=== PATIENT | male | born 1990 | race American Indian/Alaskan Native ===

== ENCOUNTER 2016-11-06 12:01 | Emergency (ER) | payer MEDICAID ==
[2016-11-06] MEDS ORDERED: GEODON IM ONE (12:22)
[2016-11-06] MEDS ORDERED: ATIVAN IM ONE (12:22)
[2016-11-06 13:03] LABS: Basophils % (Auto) 0.7 % (0.0-1.8); Hematocrit 44.8 % (35.5-45.6); Hemoglobin 14.6 gm/dl (11.8-15.2); Mean Corpuscular HGB Conc 33 % (32-34); Mean Corpuscular Hemoglobin 29 pg (28-32); Mean Corpuscular Volume 90 fl (84-94); Platelet Count 230 K/mm3 (140-440); Red Blood Count 4.97 M/mm3 (3.65-5.03); Red Cell Distribution Width 14.1 % (13.2-15.2); White Blood Count 13.3 K/mm3 (4.5-11.0)
[2016-11-06 13:20] LABS: Anion Gap 26 mmol/L; BUN/Creatinine Ratio 13.63; Blood Urea Nitrogen 15 mg/dL (9-20); Calcium 9.4 mg/dL (8.4-10.2); Carbon Dioxide 20 mmol/L (22-30); Chloride 95.6 mmol/L (98-107); Glucose 90 mg/dL (75-100); Potassium 3.7 mmol/L (3.6-5.0); Sodium 138 mmol/L (137-145)
--- NOTE | 2016-11-06 13:41 | Emergency Department Report ---
ED Psych HPI - General Chief Complaint: Psych Stated Complaint: MENTAL EVAL Source: patient, police Mode of arrival: Ambulatory - History of Present Illness Initial Comments: The patient has a history of schizophrenia. I am told that upon release from [facility] he went home to his mother's house but never took his antipsychotic medication. Apparently the patient has been floridly psychotic for some time. Police were summoned to his house and they executed a law enforcement initiated 1013. He was brought to the emergency department for medical clearance. Upon arrival the nurse told me that the patient was "ready to explode". I instructed her to give the patient 20 of Geodon and 1 of Ativan IM with the assistance of security. Apparently the police had to be summoned as well. The patient was tased and then given the medication. Patient tells me that he has been having hallucinations. He states he is listening to the "ambiance of the hospital". His agitation is now starting to subside. He has no other complaint. MD Complaint: other History of same: Yes Quality: constant Improves With: none Worsens With: none Context: not taking psychiatric Associated Symptoms: denies other symptoms Treatments Prior to Arrival: placed on mental he (police hold) - Related Data Home Medications Medication Instructions Recorded Confirmed Last Taken Ziprasidone HCl [Geodon] 80 mg PO DAILY 11/06/16 11/06/16 Unknown Allergies Allergy/AdvReac Type Severity Reaction Status Date / Time No Known Allergies Allergy Unverified 11/06/16 12:10 ED Review of Systems ROS: Stated complaint: MENTAL EVAL Other details as noted in HPI Comment: Unobtainable due to pts medical conditions (but briefly patient denies any other complaint) Psychiatric: auditory hallucinations ED Past Medical Hx - Past Medical History Previous Medical History?: Yes Hx Psychiatric Treatment: Yes (bipolar, schizophrenia) - Surgical History Past Surgical History?: No - Social History Smoking Status: Current Every Day Smoker Substance Use Type: Alcohol, Marijuana - Medications Home Medications: Home Medications Medication Instructions Recorded Confirmed Last Taken Type Ziprasidone HCl [Geodon] 80 mg PO DAILY 11/06/16 11/06/16 Unknown History ED Physical Exam - General Limitations: Other General appearance: alert, in no apparent distress - Head Head exam: Present: atraumatic, normocephalic - Eye Eye exam: Present: normal appearance. Absent: scleral icterus - ENT ENT exam: Present: mucous membranes moist - Neck Neck exam: Present: normal inspection. Absent: tenderness, meningismus - Respiratory Respiratory exam: Present: normal lung sounds bilaterally. Absent: respiratory distress - Cardiovascular Cardiovascular Exam: Present: regular rate, normal rhythm. Absent: systolic murmur, diastolic murmur, rubs, gallop - GI/Abdominal GI/Abdominal exam: Present: soft, normal bowel sounds. Absent: distended, tenderness, guarding, rebound - Rectal Rectal exam: Present: deferred - Extremities Exam Extremities exam: Present: normal inspection - Back Exam Back exam: Present: normal inspection - Neurological Exam Neurological exam: Present: alert, oriented X3, CN II-XII intact (as testable). Absent: motor sensory deficit - Psychiatric Psychiatric exam: Present: agitated, flat affect - Skin Skin exam: Present: warm, dry, intact, normal color. Absent: rash ED Course Vital Signs 11/06/16 12:10 Temperature 98.5 F Pulse Rate 91 H Respiratory 18 Rate Blood Pressure 153/91 O2 Sat by Pulse 98 Oximetry - Reevaluation(s) Reevaluation #1: The patient's behavior has been consistent with an agitated acute on chronic psychosis. 11/06/16 13:50 ED Medical Decision Making - Lab Data Result diagrams: 11/06/16 12:53 11/06/16 12:53 Laboratory Results - last 24 hr 11/06/16 11/06/16 12:53 12:53 WBC 13.3 H RBC 4.97 Hgb 14.6 Hct 44.8 MCV 90 MCH 29 MCHC 33 RDW 14.1 Plt Count 230 Lymph % (Auto) 15.7 [place] % (Auto) 9.6 H Eos % (Auto) 0.0 Baso % (Auto) 0.7 Lymph # 2.1 [place] # 1.3 H Eos # 0.0 Baso # 0.1 Seg Neutrophils % 74.0 H Seg Neutrophils # 9.8 H Sodium 138 Potassium 3.7 Chloride 95.6 L Carbon Dioxide 20 L Anion Gap 26 BUN 15 Creatinine 1.1 Estimated GFR > 60 BUN/Creatinine Ratio 13.63 Glucose 90 Calcium 9.4 Critical care attestation.: If time is entered above; I have spent that time in minutes in the direct care of this critically ill patient, excluding procedure time. ED Disposition Clinical Impression: Acute psychosis Disposition: DC/TX-65 PSY HOSP/PSY UNIT Is pt being admited?: No Does the pt Need Aspirin: No Condition: Stable Referrals: PRIMARY CARE, [Primary Care Provider] - 3-5 Days Time of Disposition: 13:52
[2016-11-06 18:11] LABS: Urine Drugs of Abuse Note Disclamer
[2016-11-06 18:22] LABS: Bilirubin,Urine NEG (Negative); Blood,Urine MOD (Negative); Ketones,Urine 80 mg/dL (Negative); Leukocyte Esterase,Urine NEG (Negative); Mucus,Urine 1+ /HPF; Nitrite,Urine NEG (Negative); WBC,Urine < 1.0 /HPF (0.0-6.0)
[2016-11-07] MEDS ORDERED: GEODON IM ONE (08:01)
[2016-11-07] MEDS ORDERED: WATER FOR INJ (PF) 10 ML ONE (08:05)
[2016-11-07] MEDS ORDERED: ATIVAN IM PRN (14:17)
[2016-11-07] MEDS ORDERED: GEODON IM PRN (14:17)
[2016-11-07] MEDS ORDERED: TYLENOL PO PRN (14:18)
[2016-11-07] MEDS ORDERED: ALUM-MAG HYDROX-SIMETH 200-200-20MG/5ML PO PRN (14:18)
[2016-11-07] MEDS ORDERED: MILK OF MAGNESIA PO PRN (14:18)
--- NOTE | 2016-11-07 15:29 | Consultation ---
History of Present Illness - Reason for Consult Reason for consult: psychosis Medications and Allergies Allergies Allergy/AdvReac Type Severity Reaction Status Date / Time No Known Allergies Allergy Verified 11/07/16 08:13 Home Medications Medication Instructions Recorded Confirmed Last Taken Type Ziprasidone HCl [Geodon] 80 mg PO DAILY 11/06/16 11/06/16 Unknown History Active Meds: Active Medications Acetaminophen (Tylenol) 650 mg PO Q4HR PRN PRN Reason: Pain MILD(1-3)/Fever >100.5/DAVIS Al Hydrox/Mg Hydrox/Simethicone (Alum-Mag Hydrox-Simeth [phone]/5ml) 30 ml PO Q4HR PRN PRN Reason: Indigestion Lorazepam (Ativan) 2 mg IM Q12H PRN PRN Reason: Agitation Magnesium Hydroxide (Milk Of Magnesia) 30 ml PO Q12HR PRN PRN Reason: Constipation Ziprasidone (Geodon) 20 mg IM Q12H PRN PRN Reason: Agitation Mental Status Exam - Vital signs Last Vital Signs Temp 98.1 F 11/07/16 01:21 Pulse 82 11/07/16 01:21 Resp 18 11/07/16 01:21 BP 148/86 11/07/16 01:21 Pulse Ox 96 11/07/16 01:21 Results Result Diagrams: 11/06/16 12:53 11/06/16 12:53 All other labs normal. 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 Patient was aggressive in the home and consequently brought to the ER per mother's request. While in the ER, patient required restraint and was tased by the staff. Patient appears to be fairly paranoid and responding to internal stimuli. PSYCHIATRIC REVIEW OF SYSTEMS: Substance: UDS positive for cannabis Depression: Withdrawn, low and irritable moods Teressa: Irritable moods, some delusions noted Psychosis: Positive AVH, notable for a thought disorder and associated paranoid delusions Anxiety/ OCD/ PTSD: For currently worried and possible anxiety noted Suicidality: denies SI Other Self-Injurious Behavior: none currently, no SIB noted recently Violent/ Aggressive Behavior: Recent aggression noted CURRENT MEDICATIONS: ( Psychiatric and Non-psychiatric ) Per medication reconciliation ALLERGIES: NKDA PAST PSYCHIATRIC HISTORY: ( Prior Treatment, Precipitating Factors, Diagnosis, and Course of Treatment ) Inpatient: [facility] Outpatient: Unable to obtain Prior Suicide Attempts: Unable to obtain Prior Self-Injurious Behaviors: Unable to obtain PAST PSYCHIATRIC MEDICATION TRIALS: Geodon 80 mg at bedtime MEDICAL HISTORY: (Chronic and Acute Illnesses, Current Medical Treatment, Recent Hospitalizations) Denies Detoxification / Withdrawal: none noted MENTAL STATUS EXAM: General Appearance: Dressed in hospital gown, no acute distress Sensorium/Consciousness: alert and responding to external stimuli Eye Contact: limited Attitude / Behavior: cooperative, but guarded Psychomotor & Musculoskeletal Activity: WNL Mood: fine Affect: Blunted Speech / Language: normal Thought Processes: Perseverative and disorganized Thought Content: no SI, no HI Perception: Likely responding to internal stimuli, paranoid Orientation: person, place, time, situation Judgment What would you do if you smelled smoke in a crowded movie theater?: poor/impulsive Insight: poor Intelligence Vocabulary, general fund of knowledge, educational level: Average Capacity of ADLs: Independent STRENGTHS: PSYCHOSOCIAL AND ENVIRONMENTAL STRESSORS: ADMITTING DIAGNOSES Psychiatric: Schizophrenia Cannabis abuse Evidence for the following: Medical: n/a INITIAL PLAN OF CARE AND TREATMENT GOALS: Refer to inpatient psychiatric care Start Zyprexa 10 mg at bedtime
--- NOTE | 2016-11-08 15:24 | Progress Note ---
Subjective - Reason for Consult Reason for consult: disorganized and aggressive Mental Status Exam - Vital signs Last Vital Signs Temp 98.8 F 11/08/16 10:45 Pulse 73 11/08/16 10:45 Resp 18 11/08/16 10:45 BP 156/82 11/08/16 10:45 Pulse Ox 100 11/08/16 10:45 Assessment and Plan Patient remains fairly irritable. Patient needed to be placed in seclusion today. Patient is adherent to his Zyprexa. On clinical examination today, patient noted that he wanted to, seclusion. I discussed this matter with the product safety manager who informed me that he will take patient out seclusion. MENTAL STATUS EXAM: General Appearance: Dressed in hospital gown, no acute distress Sensorium/Consciousness: alert and responding to external stimuli Eye Contact: limited Attitude / Behavior: cooperative, but guarded Psychomotor & Musculoskeletal Activity: WNL Mood: fine Affect: Blunted Speech / Language: normal Thought Processes: Perseverative and disorganized Thought Content: no SI, no HI Perception: Likely responding to internal stimuli, paranoid Orientation: person, place, time, situation Judgment What would you do if you smelled smoke in a crowded movie theater?: poor/impulsive Insight: poor Intelligence Vocabulary, general fund of knowledge, educational level: Average Capacity of ADLs: Independent PLAN OF CARE: Refer to inpatient psychiatric care Increase to Zyprexa 10 mg every 12 hours Haloperidol 5 mg every 8 hours can be used as needed for severe agitation along with Cogentin 1 mg as needed every 12 hours for preventing dystonic reactions
--- NOTE | 2016-11-09 10:11 | Progress Note ---
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 Today patient is calm, cooperative but delusional during assessment. He stated that he don't want to kill himself, because he have seen "hell" before. During our conversation patient would pause, look off, and continue our conversation. Patient possibly responding to some type of stimuli. He denies SI/HI's, VH's, but stated hearing "some type of voice." He could elaborate about what the voice is saying. Per the staff, no behavioral disturbances overnight. Mental Status Exam - Vital signs Last Vital Signs Temp 98.4 F 11/09/16 07:52 Pulse 79 11/09/16 07:52 Resp 16 11/09/16 07:52 BP 124/70 11/09/16 07:52 Pulse Ox 100 11/09/16 07:52 - Exam Narrative exam: MSE: Appearance: calm, cooperative Behavior: good eye contact Speech: regular rate and tone Mood: "okay" Affect: flat Thought Process: tangential Thought Content: denies HI's and AVH's, delusional Motor Activity: ambulatory Cognition: A/Ox 3 Insight: limited Judgment: limited Assessment and Plan Impression: Schizophrenia, Cannabis abuse, Delusional. Today patient is calm, cooperative but delusional during assessment. Positive for marijuana. Recommendation/Plan: Continue 1013 with placement to inpatient psy services. Continue Zyprexa 10 mg PO Q12 hrs for schizophrenia and Started Cogentin 0.5 mg PO Q12 for EPS prevention. Discussed possible metabolic side effects from Zyprexa with patient.
[2016-11-09] MEDS ORDERED: HALDOL IM PRN (10:15)
[2016-11-09] MEDS: COGENTIN PO SCH (20:06)
--- NOTE | 2016-11-10 11:35 | Progress Note ---
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 Today patient is calm and cooperative during assessment. Again, he stated that he know what it is like to go "hell." He made this statement yesterday referencing suicide. He stated that the voice he heard yesterday has ceased. He denies SI/HI's and AVH's. Per the staff, no behavioral disturbances overnight. Mental Status Exam - Vital signs Last Vital Signs Temp 97.7 F 11/10/16 03:47 Pulse 62 11/10/16 03:47 Resp 18 11/10/16 03:47 BP 129/92 11/10/16 03:47 Pulse Ox 99 11/10/16 03:47 - Exam Narrative exam: MSE: Appearance: calm, cooperative Behavior: good eye contact Speech: regular rate and tone Mood: "okay" Affect: labile Thought Process: circumstantial Thought Content: denies HI's and AVH's Motor Activity: ambulatory Cognition: A/Ox 3 Insight: limited Judgment: limited Assessment and Plan Impression: Schizophrenia, Cannabis abuse. Today patient is calm and cooperative during assessment. Positive for marijuana. Recommendation/Plan: Continue 1013 with placement to inpatient psy services. Continue Zyprexa 10 mg PO Q12 hrs for schizophrenia and Cogentin 0.5 mg PO Q12 for EPS prevention. Discussed possible metabolic side effects from Zyprexa with patient.
[2016-11-10] MEDS: COGENTIN PO SCH ×3 (13:27→22:00)
--- NOTE | 2016-11-11 16:41 | Progress Note ---
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 Today patient is calm and cooperative during assessment. He denies SI/HI's and AVH's. He admits to fears of a higher being but declined to elaborate. He was observed walking out of his room and squatting in a bizarre fashion and then returning to the room. Mental Status Exam - Vital signs Last Vital Signs Temp 98.4 F 11/11/16 08:05 Pulse 97 H 11/11/16 08:05 Resp 20 11/11/16 08:19 BP 180/95 11/11/16 08:05 Pulse Ox 100 11/11/16 08:19 Assessment and Plan MSE: Appearance: calm, cooperative Behavior: good eye contact Speech: regular rate and tone Mood: labile Affect: labile/expansive Thought Process: circumstantial Thought Content: denies HI's and AVH's anabaptist themed delusions Motor Activity: ambulatory Cognition: A/Ox 3 Insight: limited Judgment: limited Assessment and Plan Impression: Schizophrenia, Cannabis abuse. Today patient is calm and cooperative during assessment. Psychosis present. Positive for marijuana. Recommendation/Plan: Continue 1013 with placement to inpatient psy services. Continue Zyprexa 10 mg PO Q12 hrs for schizophrenia and Cogentin 0.5 mg PO Q12 for EPS prevention.
[2016-11-11] MEDS: COGENTIN PO SCH (21:40)
--- NOTE | 2016-11-12 09:42 | Progress Note ---
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 Today patient is calm, cooperative, but hyperverbal during assessment. He stated that he was anxious about his next endeavor in life. Upon my arrival to his room, patient was pacing. He stated, "I can stop walking around this room." After a couple minutes patient did sit on the gurney and speak with me. He was disorganized with his thoughts, but mentioned that he feel 165% better today. He denies SI/HI's, AVH's, sleep disturbance or a poor appetite. Mental Status Exam - Vital signs Last Vital Signs Temp 98.7 F 11/11/16 23:00 Pulse 65 11/11/16 23:00 Resp 17 11/11/16 23:00 BP 125/74 11/11/16 23:00 Pulse Ox 97 11/11/16 23:00 - Exam Narrative exam: MSE: Appearance: calm, cooperative, anxious Behavior: good eye contact, hyperverbal Speech: regular rate and tone Mood: "better" Affect: labile Thought Process: circumstantial Thought Content: denies SI/HI's and AVH's, disorganzed Motor Activity: ambulatory Cognition: A/Ox 3 Insight: limited Judgment: limited Assessment and Plan mpression: Schizophrenia, Cannabis abuse. Positive for marijuana. Recommendation/Plan: Continue 1013 with placement to inpatient psy services. Continue Zyprexa 10 mg PO Q12 hrs for schizophrenia and Cogentin 0.5 mg PO Q12 for EPS prevention. Start Vistaril 25mg PO BID for anxiety. Discussed possible metabolic side effects from Zyprexa with patient.
[2016-11-12] MEDS: COGENTIN PO SCH ×2 (10:22→22:43)
[2016-11-12] MEDS: VISTARIL PO SCH ×2 (10:22→22:43)
[2016-11-13] MEDS: VISTARIL PO SCH (10:09)
[2016-11-13] MEDS: COGENTIN PO SCH (10:09)
--- NOTE | 2016-11-13 13:22 | Progress Note ---
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 Today patient is calm, cooperative, but hyperverbal during assessment. Yesterday the patient stated that he was anxious about going back home and was pacing during our conversation. Today he denies anxiety, but stated he would like to live with his girlfriend. He denies SI's, AVH's and depression symptoms. He denies sleep disturbance and a poor appetite. He denies any side effects of his medications. Mental Status Exam - Vital signs Last Vital Signs Temp 98.3 F 11/13/16 10:59 Pulse 66 11/13/16 10:59 Resp 20 11/13/16 11:00 BP 134/76 11/13/16 10:59 Pulse Ox 100 11/13/16 10:59 - Exam Narrative exam: MSE: Appearance: calm, cooperative Behavior: good eye contact, hyperverbal Speech: regular rate and tone, disorganized Mood: "well" Affect: labile Thought Process: circumstantial Thought Content: denies SI/HI's and AVH's Motor Activity: ambulatory Cognition: A/Ox 3 Insight: limited Judgment: limited Assessment and Plan Impression: Schizophrenia, Cannabis abuse. Today patient is calm, cooperative, but hyperverbal during assessment. Patient is no threat to self or others. Recommendation/Plan: Rescind 1013. Continue Zyprexa 10 mg PO Q12 hrs for schizophrenia and Cogentin 0.5 mg PO Q12 for EPS prevention, and Vistaril 25mg PO BID for anxiety. Discussed possible metabolic side effects from Zyprexa with patient. Patient can follow-up with outpatient psy services at the [facility]. Alteration Tailor Apprentice involvement, patient will need placement.
--- NOTE | 2016-11-13 19:59 | Emergency Department Report ---
HPI - General Chief Complaint: Psych ED Past Medical Hx - Past Medical History Previous Medical History?: Yes Hx Psychiatric Treatment: Yes (bipolar, schizophrenia) - Surgical History Past Surgical History?: No - Social History Smoking Status: Current Every Day Smoker Substance Use Type: Alcohol, Marijuana - Medications Home Medications: Home Medications Medication Instructions Recorded Confirmed Last Taken Type Ziprasidone HCl [Geodon] 80 mg PO DAILY 11/06/16 11/06/16 Unknown History ED Review of Systems ROS: Stated complaint: MENTAL EVAL Other details as noted in HPI Psychiatric: auditory hallucinations Physical Exam - Physical Exam Vital Signs: Vital Signs 11/06/16 11/06/16 11/07/16 12:10 17:17 01:21 Temperature 98.5 F 98.1 F Pulse Rate 91 H 82 Respiratory 18 20 18 Rate Blood Pressure 153/91 Blood Pressure 148/86 [Left] O2 Sat by Pulse 98 96 Oximetry 11/08/16 11/08/16 11/08/16 06:56 10:45 22:00 Temperature 98.8 F 98.8 F 98.6 F Pulse Rate 78 73 83 Respiratory 16 18 16 Rate Blood Pressure Blood Pressure 130/82 156/82 122/70 [Left] O2 Sat by Pulse 98 100 97 Oximetry 11/09/16 11/09/16 11/10/16 07:52 22:26 03:47 Temperature 98.4 F 98.5 F 97.7 F Pulse Rate 79 77 62 Respiratory 16 16 18 Rate Blood Pressure Blood Pressure 124/70 125/73 129/92 [Left] O2 Sat by Pulse 100 99 99 Oximetry 11/10/16 11/11/16 11/11/16 15:58 02:40 08:05 Temperature 98 F 98.7 F 98.4 F Pulse Rate 93 H 96 H 97 H Respiratory 16 18 20 Rate Blood Pressure Blood Pressure 112/72 118/78 180/95 [Left] O2 Sat by Pulse 96 98 100 Oximetry 11/11/16 11/11/16 11/12/16 08:19 23:00 12:26 Temperature 98.7 F Pulse Rate 65 Respiratory 20 17 18 Rate Blood Pressure Blood Pressure 125/74 [Left] O2 Sat by Pulse 100 97 97 Oximetry 11/12/16 11/12/16 11/12/16 15:00 19:38 22:00 Temperature 97.6 F 98.2 F Pulse Rate 72 63 Respiratory 20 18 19 Rate Blood Pressure Blood Pressure 134/57 134/83 [Left] O2 Sat by Pulse 99 96 Oximetry 11/13/16 11/13/16 10:59 11:00 Temperature 98.3 F Pulse Rate 66 Respiratory 20 20 Rate Blood Pressure Blood Pressure 134/76 [Left] O2 Sat by Pulse 100 Oximetry ED Course Vital Signs 11/06/16 11/06/16 11/07/16 12:10 17:17 01:21 Temperature 98.5 F 98.1 F Pulse Rate 91 H 82 Respiratory 18 20 18 Rate Blood Pressure 153/91 Blood Pressure 148/86 [Left] O2 Sat by Pulse 98 96 Oximetry 11/08/16 11/08/16 11/08/16 06:56 10:45 22:00 Temperature 98.8 F 98.8 F 98.6 F Pulse Rate 78 73 83 Respiratory 16 18 16 Rate Blood Pressure Blood Pressure 130/82 156/82 122/70 [Left] O2 Sat by Pulse 98 100 97 Oximetry 11/09/16 11/09/16 11/10/16 07:52 22:26 03:47 Temperature 98.4 F 98.5 F 97.7 F Pulse Rate 79 77 62 Respiratory 16 16 18 Rate Blood Pressure Blood Pressure 124/70 125/73 129/92 [Left] O2 Sat by Pulse 100 99 99 Oximetry 11/10/16 11/11/16 11/11/16 15:58 02:40 08:05 Temperature 98 F 98.7 F 98.4 F Pulse Rate 93 H 96 H 97 H Respiratory 16 18 20 Rate Blood Pressure Blood Pressure 112/72 118/78 180/95 [Left] O2 Sat by Pulse 96 98 100 Oximetry 11/11/16 11/11/16 11/12/16 08:19 23:00 12:26 Temperature 98.7 F Pulse Rate 65 Respiratory 20 17 18 Rate Blood Pressure Blood Pressure 125/74 [Left] O2 Sat by Pulse 100 97 97 Oximetry 11/12/16 11/12/16 11/12/16 15:00 19:38 22:00 Temperature 97.6 F 98.2 F Pulse Rate 72 63 Respiratory 20 18 19 Rate Blood Pressure Blood Pressure 134/57 134/83 [Left] O2 Sat by Pulse 99 96 Oximetry 11/13/16 11/13/16 10:59 11:00 Temperature 98.3 F Pulse Rate 66 Respiratory 20 20 Rate Blood Pressure Blood Pressure 134/76 [Left] O2 Sat by Pulse 100 Oximetry ED Medical Decision Making - Lab Data Result diagrams: 11/06/16 12:53 11/06/16 12:53 - Medical Decision Making Psychiatry rescinded 1013. Patient is calm and cooperative but is not a current threat to self or others. His mother will not allow him to come home. We'll need social worker delinquency prevention to help find him a fci. Portions of this chart were dictated with dictation software. There may be dictation errors contained within this note. Critical care attestation.: If time is entered above; I have spent that time in minutes in the direct care of this critically ill patient, excluding procedure time. ED Disposition Clinical Impression: Schizophrenia Disposition: DC-01 TO HOME OR SELFCARE Is pt being admited?: No Condition: Stable Instructions: Schizophrenia (ED), Cannabis Abuse (ED) Referrals: PRIMARY CARE, [Primary Care Provider] - 3-5 Days
[2016-11-13 20:51] VITALS: BP 142/79
== END 2016-11-13 20:50 | disposition home or self-care (01) ==
LOC: ED 12:01 → EEVIPCON 12:01 → ED 11-13 20:50
DX: F29 Unspecified psychosis not due to a substance or known physiological condition (principal); F31.9 Bipolar disorder, unspecified; F20.9 Schizophrenia, unspecified; F17.200 Nicotine dependence, unspecified, uncomplicated; F12.10 Cannabis abuse, uncomplicated
CPT/HCPCS: 36415; 80048; 80307; 81001; 85025; 96372; 99285; G0480; J1630; J2060; J3486; 80320; Q0177

== ENCOUNTER 2017-02-05 12:09 | Emergency (ER) | payer MEDICAID ==
[2017-02-05] MEDS ORDERED: GEODON IM ONE (12:21)
[2017-02-05] MEDS ORDERED: ATIVAN IM ONE ×2 (12:21→17:01)
[2017-02-05 13:05] LABS: Anion Gap 25 mmol/L; BUN/Creatinine Ratio 22.22; Blood Urea Nitrogen 20 mg/dL (9-20); Calcium 9.6 mg/dL (8.4-10.2); Carbon Dioxide 19 mmol/L (22-30); Chloride 107.7 mmol/L (98-107); Glucose 86 mg/dL (75-100); Potassium 3.5 mmol/L (3.6-5.0); Sodium 148 mmol/L (137-145)
[2017-02-05 13:06] LABS: Basophils % (Auto) 1.3 % (0.0-1.8); Hematocrit 44.3 % (35.5-45.6); Hemoglobin 14.3 gm/dl (11.8-15.2); Mean Corpuscular HGB Conc 32 % (32-34); Mean Corpuscular Hemoglobin 29 pg (28-32); Mean Corpuscular Volume 90 fl (84-94); Platelet Count 206 K/mm3 (140-440); Red Blood Count 4.92 M/mm3 (3.65-5.03); Red Cell Distribution Width 14.2 % (13.2-15.2); White Blood Count 11.9 K/mm3 (4.5-11.0)
[2017-02-05 13:50] LABS: Alanine Aminotransferase 28 units/L (7-56); Albumin/Globulin Ratio 1.4 %; Alkaline Phosphatase 95 units/L (35-129); Total Protein 8.7 g/dL (6.3-8.2)
[2017-02-05 14:27] LABS: Bilirubin,Direct < 0.2 mg/dL (0-0.2); Bilirubin,Indirect 0.3 mg/dL; Creatine Kinase 2155 units/L (55-170)
[2017-02-05] MEDS ORDERED: ALUM-MAG HYDROX-SIMETH 200-200-20MG/5ML PO PRN (16:52)
[2017-02-05] MEDS ORDERED: TYLENOL PO PRN (16:52)
--- NOTE | 2017-02-05 16:58 | Emergency Department Report ---
ED Psych HPI - General Chief Complaint: Medical Clearance Stated Complaint: 1013 Time Seen by Provider: 02/05/17 12:20 Source: family Mode of arrival: Ambulatory - History of Present Illness Initial Comments: Patient was seen by me on 2016 for an acute psychosis. He remained at this facility for approximately a week. Today he was apparently ranting and raving in a apartment complex office. The police were summoned. The patient's mother requested that he come for a mental health evaluation. When he arrived he was apparently extremely agitated distracted and acutely psychotic. He required security and police restraint and antipsychotic medication. At this time the patient has no specific complaints. He continues to have some akathisia perhaps walking around his room. His associations are extremely loose. He appears to be somewhat paranoid but he is markedly less agitated. MD Complaint: other (acute psychosis) -: unknown Associated Psychiatric Symptoms: racing thoughts History of same: Yes Quality: constant Improves With: none Worsens With: none Context: not taking psychiatric (most likely) - Related Data Home Medications Medication Instructions Recorded Confirmed Last Taken Ziprasidone HCl [Geodon] 80 mg PO DAILY 11/06/16 11/06/16 Unknown Allergies Allergy/AdvReac Type Severity Reaction Status Date / Time No Known Allergies Allergy Verified 11/07/16 08:13 ED Review of Systems ROS: Stated complaint: 1013 Other details as noted in HPI Comment: Unobtainable due to pts medical conditions (later the patient reports no physical complaints.) ED Past Medical Hx - Past Medical History Hx Psychiatric Treatment: Yes (bipolar, schizophrenia) - Social History Smoking Status: Unknown if ever smoked Substance Use Type: Other (unknown) - Medications Home Medications: Home Medications Medication Instructions Recorded Confirmed Last Taken Type Ziprasidone HCl [Geodon] 80 mg PO DAILY 11/06/16 11/06/16 Unknown History ED Physical Exam - General Limitations: Other (acute psychosis) General appearance: alert (hyperalert/manic), in no apparent distress - Head Head exam: Present: atraumatic, normocephalic - Eye Eye exam: Present: normal appearance. Absent: scleral icterus Pupils: Present: other (wide eyed) - ENT ENT exam: Present: normal exam, mucous membranes moist - Neck Neck exam: Present: normal inspection - Respiratory Respiratory exam: Present: normal lung sounds bilaterally. Absent: respiratory distress - Cardiovascular Cardiovascular Exam: Present: regular rate, normal rhythm. Absent: systolic murmur, diastolic murmur, rubs, gallop - GI/Abdominal GI/Abdominal exam: Present: soft, normal bowel sounds. Absent: distended, tenderness, guarding, rebound, rigid - Rectal Rectal exam: Present: deferred - Extremities Exam Extremities exam: Present: normal inspection - Back Exam Back exam: Present: normal inspection - Neurological Exam Neurological exam: Present: alert, oriented X3, CN II-XII intact (as testable), normal gait. Absent: motor sensory deficit - Psychiatric Psychiatric exam: Present: agitated, anxious, manic, other (apparently paranoid) - Skin Skin exam: Present: warm, dry, intact, normal color. Absent: rash ED Course Vital Signs 02/05/17 02/05/17 12:17 13:07 Pulse Rate 116 H Respiratory 22 18 Rate Blood Pressure 186/116 O2 Sat by Pulse 96 98 Oximetry - Reevaluation(s) Reevaluation #1: Given Geodon and Ativan IM. Later the patient told me that he would take oral medication. This has been ordered. I discussed his case with the mental health counselor Diana. He is awaiting acceptance at a psychiatric facility. 02/05/17 16:58 02/05/17 16:59 Reevaluation #2: Patient was not be mildly hyponatremic and in rhabdomyolysis. He will be given a bolus of normal saline. He took by mouth and fluid. I suspect his CK will be down subsequent to this and it will be rechecked. He will likely be medically clear for psychiatric admission. 02/05/17 17:02 ED Medical Decision Making - Lab Data Result diagrams: 02/05/17 12:34 02/05/17 12:34 Laboratory Results - last 24 hr 02/05/17 02/05/17 02/05/17 12:34 12:34 12:34 WBC 11.9 H RBC 4.92 Hgb 14.3 Hct 44.3 MCV 90 MCH 29 MCHC 32 RDW 14.2 Plt Count 206 Lymph % (Auto) 16.6 [place] % (Auto) 6.9 Eos % (Auto) 1.0 Baso % (Auto) 1.3 Lymph # 2.0 [place] # 0.8 Eos # 0.1 Baso # 0.2 H Seg Neutrophils % 74.2 H Seg Neutrophils # 8.9 H Sodium 148 H Potassium 3.5 L Chloride 107.7 H Carbon Dioxide 19 L Anion Gap 25 BUN 20 Creatinine 0.9 Estimated GFR > 60 BUN/Creatinine Ratio 22.22 Glucose 86 Calcium 9.6 Magnesium Total Bilirubin Direct Bilirubin Indirect Bilirubin AST ALT Alkaline Phosphatase Total Creatine Kinase CK-MB (CK-2) CK-MB (CK-2) Rel Index Total Protein Albumin Albumin/Globulin Ratio Plasma/Serum Alcohol < 0.01 02/05/17 12:40 WBC RBC Hgb Hct MCV MCH MCHC RDW Plt Count Lymph % (Auto) Sum[place] % (Auto) Eos % (Auto) Baso % (Auto) Lymph # [place] # Eos # Baso # Seg Neutrophils % Seg Neutrophils # Sodium Potassium Chloride Carbon Dioxide Anion Gap BUN Creatinine Estimated GFR BUN/Creatinine Ratio Glucose Calcium Magnesium 2.00 Total Bilirubin 0.50 Direct Bilirubin < 0.2 Indirect Bilirubin 0.3 AST 45 H ALT 28 Alkaline Phosphatase 95 Total Creatine Kinase 2155 H CK-MB (CK-2) 14.0 H CK-MB (CK-2) Rel Index 0.6 Total Protein 8.7 H Albumin 5.0 Albumin/Globulin Ratio 1.4 Plasma/Serum Alcohol Critical care attestation.: If time is entered above; I have spent that time in minutes in the direct care of this critically ill patient, excluding procedure time. ED Disposition Clinical Impression: Acute psychosis Schizoaffective disorder Qualifiers: Schizoaffective disorder type: bipolar Qualified Code(s): F25.0 - Schizoaffective disorder, bipolar type Rhabdomyolysis Qualifiers: Rhabdomyolysis type: non-traumatic Qualified Code(s): M62.82 - Rhabdomyolysis Disposition: DC/TX-65 PSY HOSP/PSY UNIT Is pt being admited?: No Does the pt Need Aspirin: No Condition: Stable Referrals: PRIMARY CARE, [Primary Care Provider] - 3-5 Days Time of Disposition: 17:03
[2017-02-05] MEDS ORDERED: NACL 0.9% 1000 ML 2,000 ML IV ONE (17:01)
[2017-02-05 17:21] LABS: Urine Drugs of Abuse Note Disclamer
[2017-02-05 17:34] LABS: Bilirubin,Urine NEG (Negative); Blood,Urine NEG (Negative); Ketones,Urine 20 mg/dL (Negative); Leukocyte Esterase,Urine NEG (Negative); Mucus,Urine 3+ /HPF; Nitrite,Urine NEG (Negative); Urobilinogen,Urine < 2.0 mg/dL (<2.0)
[2017-02-05 21:20] LABS: Potassium TNR mmol/L (3.6-5.0); Sodium TNR mmol/L (137-145)
[2017-02-05 21:21] LABS: Anion Gap TNR mmol/L; BUN/Creatinine Ratio TNR; Blood Urea Nitrogen TNR mg/dL (9-20); Calcium TNR mg/dL (8.4-10.2); Carbon Dioxide TNR mmol/L (22-30); Chloride TNR mmol/L (98-107); Creatine Kinase TNR units/L (55-170); Glucose TNR mg/dL (75-100)
[2017-02-05 21:22] LABS: Creatine Kinase MB TNR ng/mL (0.0-4.0)
[2017-02-05] MEDS: GEODON PO SCH (22:19)
[2017-02-06 01:53] LABS: Creatine Kinase MB 15.1 ng/mL (0.0-4.0)
[2017-02-06 12:11] LABS: Anion Gap 19 mmol/L; Blood Urea Nitrogen 22 mg/dL (9-20); Calcium 9.3 mg/dL (8.4-10.2); Carbon Dioxide 25 mmol/L (22-30); Chloride 110.7 mmol/L (98-107); Glucose 66 mg/dL (75-100); Sodium 151 mmol/L (137-145)
[2017-02-06] MEDS: GEODON PO SCH ×2 (14:19→22:10)
[2017-02-07] MEDS: GEODON PO SCH ×2 (10:56→21:37)
[2017-02-07] MEDS ORDERED: GEODON IM ONE (13:17)
[2017-02-07 14:35] LABS: Anion Gap 18 mmol/L; BUN/Creatinine Ratio 26.25; Blood Urea Nitrogen 21 mg/dL (9-20); Calcium 9.7 mg/dL (8.4-10.2); Carbon Dioxide 25 mmol/L (22-30); Chloride 109.5 mmol/L (98-107); Creatine Kinase 1289 units/L (55-170); Glucose 96 mg/dL (75-100); Potassium 3.8 mmol/L (3.6-5.0); Sodium 149 mmol/L (137-145)
[2017-02-07] MEDS: GEODON IM PRN (22:05)
[2017-02-08] MEDS: GEODON PO SCH (13:01)
[2017-02-08] MEDS: GEODON IM PRN (13:33)
--- NOTE | 2017-02-08 13:33 | Consultation ---
History of Present Illness - Reason for Consult Consult date: 02/08/17 Reason for consult: Mental Health Evaluation Requesting physician: JASON GROSS - Chief Complaint Chief complaint: "What" - History of Present Psychiatric Illness 26 y.o. AA male presenting to [facility] for psychosis. Per the ER note, the patient was apparently ranting and raving in a apartment complex office and the police was summoned. Today patient is uncooperative, anxious, with a tangential thought process. He continue to state his name and his when asked questions. He had to be put in the padded room for safety concerns. Patient was pacing the room only wearing his underwear. He did answer "yes" to taking Zyprexa. No gestures of SI/HI's and AVH's. Patient positive for marijuana. Medications and Allergies Allergies Allergy/AdvReac Type Severity Reaction Status Date / Time No Known Allergies Allergy Verified 11/07/16 08:13 Home Medications Medication Instructions Recorded Confirmed Last Taken Type Ziprasidone HCl [Geodon] 80 mg PO DAILY 11/06/16 02/06/17 Unknown History Active Meds: Active Medications Acetaminophen (Tylenol) 650 mg PO Q4HR PRN PRN Reason: Pain MILD(1-3)/Fever >100.5/DAVIS Al Hydrox/Mg Hydrox/Simethicone (Alum-Mag Hydrox-Simeth [id number]/5ml) 30 ml PO Q4HR PRN PRN Reason: Indigestion Magnesium Hydroxide (Milk Of Magnesia) 30 ml PO Q12HR PRN PRN Reason: Constipation Past psychiatric history - Past Medical History Past Medical History: other (Unable to obtain) Past Surgical History: Other (Unable to obtain) - past Psychiatric treatment and history psychiatric treatment history: Unable to obtain a psy hx and fam psy. - Social History Social history: other (Unable to obtain ) Mental Status Exam - Vital signs Last Vital Signs Temp 98.4 F 02/07/17 22:00 Pulse 83 02/07/17 22:00 Resp 16 02/07/17 22:00 BP 126/76 02/07/17 22:00 Pulse Ox 100 02/07/17 22:00 - Exam Narrative exam: ROS: (+) psychosis MSE: Appearance: uncooperative, anxious Behavior: poor eye contact Speech: loud tone Mood: unable to assess Affect: labile Thought Process: tangential Thought Content: no gestures of SI/HI's and AVH's Motor Activity: ambulatory Cognition: A/O x3 Insight: limited Judgment: limited Results Result Diagrams: 02/05/17 12:34 02/07/17 13:44 Abnormal lab results 02/07/17 Range/Units 13:44 Sodium 149 H (137-145) mmol/L Chloride 109.5 H (98-107) mmol/L BUN 21 H (9-20) mg/dL Total Creatine Kinase 1289 H (55-170) units/L All other labs normal. Assessment and Plan Assessment and plan: Impression: Unspecified Psychosis. Substance Use DO (marijuana). Today patient is uncooperative, anxious, with a tangential thought process. DDx: R/O Schizophrenia, R/O Bipolar, Substance Induced Psychosis Recommendation/Plan: Continue 1013 with placement to inpatient psy services. Start Zyprexa 5 mg PO HS for psychosis, Cogentin 0.5 mg PO HS for EPS prevention and Haldol 5 mg IM Q6hrs for acute agitation. Discussed possible metabolic side effects of Zyprexa with patient. CK level in the AM.
[2017-02-08] MEDS ORDERED: HALDOL IM PRN (13:46)
[2017-02-08] MEDS ORDERED: ATIVAN PO ONE (13:51)
[2017-02-08] MEDS ORDERED: COGENTIN PO SCH (22:00)
[2017-02-09] MEDS: HALDOL IM PRN ×2 (09:30→19:27)
--- NOTE | 2017-02-09 13:00 | Progress Note ---
Subjective - Reason for Consult Consult date: 02/09/17 Reason for consult: Psychiatry Follow-up - Chief Complaint Chief complaint: "Patient is combative" 26 y.o. AA male presenting to [facility] for psychosis. Per the ER note, the patient was apparently ranting and raving in a apartment complex office and the police was summoned. Today patient is irritated with a tangential thought process. Patient was hyper verbal and had to be redirected several times. Patient halted the assessment, stating, "I want to shower." No gestures of SI/HI's. Mental Status Exam - Vital signs Last Vital Signs Temp 98.6 F 02/08/17 10:15 Pulse 86 02/08/17 10:15 Resp 20 02/09/17 05:29 BP 128/77 02/08/17 10:15 Pulse Ox 100 02/09/17 05:29 - Exam Narrative exam: MSE: Appearance: uncooperative, anxious Behavior: poor eye contact, hyper verbal Speech: loud tone Mood: unable to assess Affect: labile Thought Process: tangential Thought Content: no gestures of SI/HI's and AVH's Motor Activity: ambulatory Cognition: A/O x3 Insight: limited Judgment: limited Assessment and Plan Impression: Unspecified Psychosis. Substance Use DO (marijuana). Today patient is uncooperative, anxious, with a tangential thought process. CK 843. DDx: R/O Schizophrenia, R/O Bipolar, Substance Induced Psychosis Recommendation/Plan: Continue 1013 with placement to inpatient psy services. Modify Zyprexa to 5 mg PO BID for psychosis and Cogentin to 0.5 mg PO BID for EPS prevention, and Haldol 5 mg IM Q6hrs for acute agitation. Start Buspar 5 mg PO BID for anxiety. Discussed possible metabolic side effects of Zyprexa with patient.
[2017-02-09] MEDS: BUSPAR PO SCH (22:45)
[2017-02-09] MEDS: COGENTIN PO SCH (22:45)
[2017-02-10] MEDS: HALDOL IM PRN ×2 (08:35→23:03)
[2017-02-10] MEDS: COGENTIN PO SCH ×2 (09:34→22:01)
[2017-02-10] MEDS: BUSPAR PO SCH ×2 (09:34→22:00)
[2017-02-11] MEDS: COGENTIN PO SCH ×2 (10:30→22:15)
[2017-02-11] MEDS: BUSPAR PO SCH ×2 (10:30→22:15)
--- NOTE | 2017-02-11 11:13 | Progress Note ---
Subjective - Reason for Consult Consult date: 02/11/17 Reason for consult: Psychiatry Follow-up - Chief Complaint Chief complaint: "Angel shepard" 26 y.o. AA male presenting to [facility] for psychosis. Per the ER note, the patient was apparently ranting and raving in a apartment complex office and the police was summoned. Today patient is cooperative during the assessment. Patient is willing to answer questions when asked. He stated that he live in a long term, but cannot remember why he ended up at [facility]. During our conversation patient is hyper verbal and had to be redirected several time possibly responding to internal stimuli. He denies SI/HI's and AVH's. Per the staff, patient is more agitated at night. Patient stated that he has a hx of Bipolar DO with psychosis. Mental Status Exam - Vital signs Last Vital Signs Temp 98 F 02/10/17 19:45 Pulse 89 02/10/17 19:45 Resp 18 02/10/17 19:45 BP 132/84 02/10/17 19:45 Pulse Ox 100 02/10/17 19:45 - Exam Narrative exam: MSE: Appearance: cooperative Behavior: regular eye contact Speech: regular rate and tone, hyper verbal Mood: elated Affect: congruent to mood Thought Process: tangential Thought Content: denies SI/HI's and AVH's Motor Activity: ambulatory Cognition: A/O x3 Insight: limited Judgment: limited Assessment and Plan Impression: Historical Dx: Bipolar DO with psychosis. Unspecified Psychosis. Substance Use DO (marijuana). Today patient is cooperative during the assessment with a tangential thought process. CK 843. DDx: R/O Schizophrenia, R/O Bipolar, Substance Induced Psychosis Recommendation/Plan: Continue 1013 with placement to inpatient psy services. Continue Zyprexa 5 mg PO BID for psychosis/mood and Cogentin to 0.5 mg PO BID for EPS prevention, Haldol 5 mg IM Q6hrs for acute agitation, and Buspar 5 mg PO BID for anxiety. Start Depakote 500 mg PO BID for mood. Discussed possible metabolic side effects of Zyprexa with patient.
[2017-02-11] MEDS: HALDOL IM PRN (22:47)
[2017-02-12] MEDS: BUSPAR PO SCH ×3 (10:10→22:07)
[2017-02-12] MEDS: COGENTIN PO SCH ×2 (10:10→22:07)
[2017-02-12] MEDS: HALDOL IM PRN (11:33)
--- NOTE | 2017-02-12 13:11 | Progress Note ---
Subjective - Reason for Consult Consult date: 02/12/17 Reason for consult: Psychiatry Follow-up - Chief Complaint Chief complaint: "Angel shepard" 26 y.o. AA male presenting to [facility] for psychosis. Per the ER note, the patient was apparently ranting and raving in a apartment complex office and the police was summoned. Today patient is cooperative, but anxious with a tangential thought process. The patient is still hyper verbal and had to be redirected several times during our conversation. Per the staff, the patient behavioral have been erratic throughout the day. He denies SI/HI's and AVH's. He denies any side effects of his medications. Mental Status Exam - Vital signs Last Vital Signs Temp 97 F L 02/12/17 10:00 Pulse 77 02/12/17 10:00 Resp 20 02/12/17 10:00 BP 144/92 02/12/17 10:00 Pulse Ox 99 02/12/17 10:00 - Exam Narrative exam: MSE: Appearance: cooperative Behavior: regular eye contact Speech: regular rate and tone, hyper verbal Mood: elated, anxious Affect: congruent to mood Thought Process: tangential Thought Content: denies SI/HI's and AVH's, paranoia Motor Activity: ambulatory Cognition: A/O x3 Insight: limited Judgment: limited Assessment and Plan Impression: Historical Dx: Bipolar DO with psychosis. Unspecified Psychosis. Substance Use DO (marijuana). Today patient is cooperative, but anxious during the assessment with a tangential thought process. DDx: R/O Schizophrenia, R/O Bipolar, Substance Induced Psychosis Recommendation/Plan: Continue 1013 with placement to inpatient psy services. Modify Zyprexa to 5 mg PO QAM and Zyprexa 10 mg PO HS for psychosis/mood. Continue Cogentin to 0.5 mg PO BID for EPS prevention, Haldol 5 mg IM Q6hrs for acute agitation, and modify Buspar to 5 mg PO TID for anxiety. Continue Depakote 500 mg PO BID for mood. Discussed possible metabolic side effects of Zyprexa with patient.
[2017-02-13] MEDS: HALDOL IM PRN (07:07)
[2017-02-13] MEDS: BUSPAR PO SCH ×3 (08:16→21:20)
[2017-02-13] MEDS: COGENTIN PO SCH ×2 (11:04→22:19)
[2017-02-14] MEDS: HALDOL IM PRN ×2 (06:00→14:14)
[2017-02-14] MEDS: BUSPAR PO SCH ×3 (07:52→21:23)
[2017-02-14] MEDS: COGENTIN PO SCH ×2 (10:12→22:23)
--- NOTE | 2017-02-14 10:42 | Progress Note ---
Subjective - Reason for Consult Consult date: 02/14/17 Reason for consult: Psychiatry Follow-up - Chief Complaint Chief complaint: "Angel shepard" 26 y.o. AA male presenting to [facility] for psychosis. Per the ER note, the patient was apparently ranting and raving in a apartment complex office and the police was summoned. Today patient is cooperative with a tangential thought process. The patient is still hyper verbal and had to be redirected several times during our conversation. Per the staff, the patient been completing his ADL's. He denies SI/HI's and AVH's. He denies any side effects of his medications. Mental Status Exam - Vital signs Last Vital Signs Temp 98.5 F 02/14/17 09:03 Pulse 85 02/14/17 09:03 Resp 20 02/14/17 09:03 BP 146/78 02/14/17 09:03 Pulse Ox 99 02/14/17 09:03 - Exam Narrative exam: MSE: Appearance: cooperative Behavior: regular eye contact Speech: regular rate and tone, hyper verbal Mood: elated Affect: congruent to mood Thought Process: tangential Thought Content: denies SI/HI's and AVH's Motor Activity: ambulatory Cognition: A/O x3 Insight: limited Judgment: limited Assessment and Plan Impression: Historical Dx: Bipolar DO with psychosis. Unspecified Psychosis. Substance Use DO (marijuana). Today patient is cooperative with a tangential thought process. DDx: R/O Schizophrenia, R/O Bipolar, Substance Induced Psychosis Recommendation/Plan: Continue 1013 with placement to inpatient psy services. Modify Zyprexa to 5 mg PO QAM and Zyprexa 10 mg PO HS for psychosis/mood. Continue Cogentin to 0.5 mg PO BID for EPS prevention, Haldol 5 mg IM Q6hrs for acute agitation, and modify Buspar to 5 mg PO TID for anxiety. Continue Depakote 500 mg PO BID for mood. Discussed possible metabolic side effects of Zyprexa with patient.
[2017-02-14] MEDS: MILK OF MAGNESIA PO PRN ×2 (14:13→14:14)
[2017-02-15] MEDS: BUSPAR PO SCH ×3 (08:22→21:28)
--- NOTE | 2017-02-15 09:19 | Progress Note ---
Subjective - Reason for Consult Consult date: 02/15/17 Reason for consult: Psychiatry Follow-up - Chief Complaint Chief complaint: "Angel shepard" 26 y.o. AA male presenting to [facility] for psychosis. Per the ER note, the patient was apparently ranting and raving in a apartment complex office and the police was summoned. Today patient is calm and cooperative during the assessment. Patient is still hyper verbal and disorganized, but was able to tell me that he reside in [facility] ([address] He had to be redirected several time to keep him focus on the questions asked of him. He denies SI/HI's and AVH' s. Per the staff, patient is completing his ADL's. He denies any side effects of his medications. Mental Status Exam - Vital signs Last Vital Signs Temp 98.9 F 02/14/17 21:05 Pulse 72 02/14/17 21:05 Resp 16 02/14/17 21:05 BP 105/58 02/14/17 21:05 Pulse Ox 99 02/14/17 21:05 - Exam Narrative exam: MSE: Appearance:calm, cooperative Behavior: regular eye contact Speech: regular rate and tone, hyper verbal Mood: "okay" Affect: labile Thought Process: tangential Thought Content: denies SI/HI's and AVH's, disorganized Motor Activity: ambulatory Cognition: A/O x3 Insight: limited Judgment: limited Assessment and Plan Impression: Historical Dx: Bipolar DO with psychosis. Unspecified Psychosis. Substance Use DO (marijuana). Today patient is cooperative with a tangential thought process. DDx: R/O Schizophrenia, R/O Bipolar, Substance Induced Psychosis Recommendation/Plan: Continue 1013 with placement to inpatient psy services. Modify Zyprexa to 10 mg PO QAM and continue Zyprexa 10 mg PO HS for psychosis/ mood, Cogentin to 0.5 mg PO BID for EPS prevention, Buspar to 5 mg PO TID for anxiety, and Depakote 500 mg PO BID for mood. Discussed possible metabolic side effects of Zyprexa with patient.
[2017-02-15] MEDS: COGENTIN PO SCH ×2 (10:01→22:11)
[2017-02-16] MEDS: BUSPAR PO SCH ×3 (08:19→20:30)
--- NOTE | 2017-02-16 09:45 | Progress Note ---
Subjective - Reason for Consult Consult date: 02/16/17 Reason for consult: Psychiatry Follow-up - Chief Complaint Chief complaint: "Angel shepard" 26 y.o. AA male presenting to [facility] for psychosis. Per the ER note, the patient was apparently ranting and raving in a apartment complex office and the police was summoned. Today patient is calm, cooperative, engaging, and pleasant during the assessment. 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 He stated that his outpatient psy services is managed by [facility] ([facility]). He denies SI/HI's and AVH's. Per the staff, no behavioral disturbances in the last 48 hours or administration of a prn medication. He denies any side effects of his medications. Mental Status Exam - Vital signs Last Vital Signs Temp 98 F 02/16/17 00:03 Pulse 77 02/16/17 00:03 Resp 18 02/16/17 00:03 BP 101/58 02/16/17 00:03 Pulse Ox 97 02/16/17 00:03 - Exam Narrative exam: MSE: Appearance:calm, cooperative Behavior: regular eye contact Speech: regular rate and tone Mood: "okay" Affect: congruent to mood Thought Process: circumstantial Thought Content: denies SI/HI's and AVH's Motor Activity: ambulatory Cognition: A/O x3 Insight: fair Judgment: fair Assessment and Plan Impression: Historical Dx: Bipolar DO with psychosis. Unspecified Psychosis. Substance Use DO (marijuana). Today patient is calm, cooperative, engaging, and pleasant during the assessment. DDx: R/O Schizophrenia, R/O Bipolar, Substance Induced Psychosis Recommendation/Plan: Rescind 1013. Continue Zyprexa to 10 mg PO QAM and continue Zyprexa 10 mg PO HS for psychosis/mood, Cogentin to 0.5 mg PO BID for EPS prevention, Buspar to 5 mg PO TID for anxiety, and Depakote 500 mg PO BID for mood. Discussed possible metabolic side effects of Zyprexa with patient. Patient is seen by [facility] ([facility]) for outpatient psy services. Social Service involvement patient will need transportation back to his custodial.
[2017-02-16] MEDS: COGENTIN PO SCH ×3 (11:24→20:42)
[2017-02-16 11:33] VITALS: BP 101/58
[2017-02-16] MEDS: MILK OF MAGNESIA PO PRN (20:39)
== END 2017-02-16 20:49 | disposition home or self-care (01) ==
LOC: ED 12:09 → EEVIPCON 12:09 → ED 02-16 20:49
DX: F23 Brief psychotic disorder (principal); F25.0 Schizoaffective disorder, bipolar type; M62.82 Rhabdomyolysis
CPT/HCPCS: 36415; 80048; 80074; 80164; 80307; 81001; 82550; 82553; 83735; 84450; 85025; 96360; 96361; 96372; 99285; G0480; J1630; J2060; J3486; J7030; 80320

== ENCOUNTER 2020-10-15 13:37 | Emergency (ER) | payer MEDICAID ==
[2020-10-15] MEDS ORDERED: LORazepam 2 MG/ML VIAL IM ONE (14:43)
[2020-10-15] MEDS ORDERED: ZIPRASIDONE MESYLATE 20 MG VIAL IM ONE (14:43)
[2020-10-15] MEDS ORDERED: ACETAMINOPHEN 325 MG TAB PO PRN (14:44)
[2020-10-15] MEDS ORDERED: MAGNESIUM HYDROXIDE (MOM) ORAL LIQD UDC PO PRN (14:44)
[2020-10-15] MEDS ORDERED: ALUM-MAG HYDROXIDE-SIMETHICONE 200-200-20MG/5ML ORAL LIQD 30 ML PO PRN (14:44)
[2020-10-15] MEDS ORDERED: ZIPRASIDONE MESYLATE 20 MG VIAL IM PRN (14:48)
--- NOTE | 2020-10-15 15:13 | Emergency Department Report ---
ED Psych HPI - General Chief Complaint: Psych Stated Complaint: 1013/ACTING OUT Time Seen by Provider: 10/15/20 14:42 Source: EMS Mode of arrival: Ambulatory - History of Present Illness Initial Comments: 30-year-old male who arrives via police escort after being 1013 by his treating psychiatrist. Apparently he was at Dr. Phillips's office or clinic. He was found "responding to internal stimuli, cursing, aggressive wanting to fight everyone around him ". He was sent by a psychiatrist who signed a 1013 form. Patient was seen by me under similar circumstances in 2017. He has a history of schizoaffective disorder with psychotic features. He was discharged from [facility] last week. Most likely he is not compliant with his medication. On my encounter the patient was pacing. He was clearly responding to internal stimuli. He did make violent threats to the staff and stated that he wanted to "kill everyone". It was not physically violent, however. He did allow staff to give him medication with some verbal de-escalation. MD Complaint: other -: unknown Associated Psychiatric Symptoms: homicidal ideation, racing thoughts, delusions History of same: Yes Quality: constant Improves With: none Worsens With: none Context: not taking psychiatric (Most likely) Associated Symptoms: denies other symptoms Treatments Prior to Arrival: none - Related Data Home Medications Medication Instructions Recorded Confirmed Last Taken Ziprasidone HCl [Geodon] 80 mg PO DAILY 11/06/16 02/06/17 Unknown Allergies Allergy/AdvReac Type Severity Reaction Status Date / Time No Known Allergies Allergy Verified 11/07/16 08:13 ED Review of Systems ROS: Stated complaint: 1013/ACTING OUT Other details as noted in HPI Comment: Unobtainable due to pts medical conditions (Patient states "I am fine". He is coherent to answer to the negative on abbreviated review of systems) ED Past Medical Hx - Past Medical History Hx Psychiatric Treatment: Yes (bipolar, schizophrenia) - Surgical History Additional Surgical History: unknown - Social History Smoking Status: Never Smoker - Medications Home Medications: Home Medications Medication Instructions Recorded Confirmed Last Taken Type Ziprasidone HCl [Geodon] 80 mg PO DAILY 11/06/16 02/06/17 Unknown History ED Physical Exam - General Limitations: Other (Psychotic, responding to internal stimuli, delusional, but amply responsive and coherent following commands) General appearance: alert, in no apparent distress - Head Head exam: Present: atraumatic, normocephalic - Eye Eye exam: Present: normal appearance. Absent: scleral icterus - ENT ENT exam: Present: mucous membranes moist - Neck Neck exam: Present: normal inspection - Respiratory Respiratory exam: Present: normal lung sounds bilaterally. Absent: respiratory distress - Cardiovascular Cardiovascular Exam: Present: regular rate, normal rhythm. Absent: systolic murmur, diastolic murmur, rubs, gallop - GI/Abdominal GI/Abdominal exam: Present: soft, normal bowel sounds. Absent: distended, tenderness, guarding, rebound - Rectal Rectal exam: Present: deferred - Extremities Exam Extremities exam: Present: normal inspection - Back Exam Back exam: Present: normal inspection - Neurological Exam Neurological exam: Present: alert, oriented X3, CN II-XII intact, normal gait. Absent: motor sensory deficit - Psychiatric Psychiatric exam: Present: agitated, flat affect, manic (Somewhat), other (Responding to internal stimuli, paranoia) - Skin Skin exam: Present: warm, dry, intact, normal color. Absent: rash ED Course Vital Signs 10/15/20 15:10 Temperature 99.1 F Pulse Rate 90 Respiratory 14 Rate Blood Pressure 147/85 O2 Sat by Pulse 100 Oximetry ED Medical Decision Making - Lab Data Result diagrams: 10/15/20 15:33 10/15/20 15:33 Laboratory Results - last 24 hr 10/15/20 10/15/20 10/15/20 15:33 15:33 15:33 WBC RBC Hgb Hct MCV MCH MCHC RDW Plt Count Lymph % (Auto) Hart % (Auto) Eos % (Auto) Baso % (Auto) Lymph # (Auto) Hart # (Auto) Eos # (Auto) Baso # (Auto) Seg Neutrophils % Seg Neutrophils # Sodium 139 Potassium 3.9 Chloride 102.4 Carbon Dioxide 25 Anion Gap 16 BUN 16 Creatinine 0.9 Estimated GFR > 60 BUN/Creatinine Ratio 18 Glucose 112 H Calcium 8.9 Salicylates < 0.3 L Acetaminophen 5.0 L Plasma/Serum Alcohol 10/15/20 10/15/20 15:33 15:33 WBC 9.5 RBC 4.43 Hgb 13.4 Hct 40.3 MCV 91 MCH 30 MCHC 33 RDW 13.6 Plt Count 233 Lymph % (Auto) 18.0 Hart % (Auto) 6.8 Eos % (Auto) 0.8 Baso % (Auto) 1.3 Lymph # (Auto) 1.7 Hart # (Auto) 0.7 Eos # (Auto) 0.1 Baso # (Auto) 0.1 Seg Neutrophils % 73.1 H Seg Neutrophils # 7.0 Sodium Potassium Chloride Carbon Dioxide Anion Gap BUN Creatinine Estimated GFR BUN/Creatinine Ratio Glucose Calcium Salicylates Acetaminophen Plasma/Serum Alcohol < 0.01 Critical care attestation.: If time is entered above; I have spent that time in minutes in the direct care of this critically ill patient, excluding procedure time. ED Disposition Clinical Impression: Acute psychosis, Aggressive behavior Schizoaffective disorder Qualifiers: Schizoaffective disorder type: bipolar Qualified Code(s): F25.0 - Schizoaf fective disorder, bipolar type Disposition: DC-01 TO HOME OR SELFCARE Is pt being admited?: No Does the pt Need Aspirin: No Condition: Stable Referrals: PRIMARY CARE, [Primary Care Provider] - 3-5 Days Time of Disposition: 17:24
[2020-10-15 15:46] LABS: Basophils # (Auto) 0.1 K/mm3 (0.0-0.1); Basophils % (Auto) 1.3 % (0.0-1.8); Eosinophils # (Auto) 0.1 K/mm3 (0.0-0.4); Eosinophils % (Auto) 0.8 % (0.0-4.3); Hematocrit 40.3 % (35.5-45.6); Hemoglobin 13.4 gm/dl (11.8-15.2); Lymphocytes # (Auto) 1.7 K/mm3 (1.2-5.4); Mean Corpuscular HGB Conc 33 % (32-34); Mean Corpuscular Volume 91 fl (84-94); Monocytes # (Auto) 0.7 K/mm3 (0.0-0.8); Monocytes % (Auto) 6.8 % (0.0-7.3); Platelet Count 233 K/mm3 (140-440); Red Blood Count 4.43 M/mm3 (3.65-5.03); Red Cell Distribution Width 13.6 % (13.2-15.2)
[2020-10-15 16:05] LABS: BUN/Creatinine Ratio 18; Blood Urea Nitrogen 16 mg/dL (9-20); Calcium 8.9 mg/dL (8.4-10.2); Hemolysis Index 14
[2020-10-16] MEDS ORDERED: LORazepam 2 MG/ML VIAL ONE (05:22)
[2020-10-16] MEDS ORDERED: ZIPRASIDONE MESYLATE 20 MG VIAL IM ONE (05:32)
[2020-10-16] MEDS ORDERED: LORazepam 2 MG/ML VIAL IM STA (05:32)
--- NOTE | 2020-10-16 05:33 | Event Note ---
Patient became combative and aggressive. [facility] Police [employer] officer called to assist with medication administration. I have ordered Geodon and Ativan for chemical restraint. Also ordered seclusion.
[2020-10-16 07:35] VITALS: BP 130/73
[2020-10-16 12:47] LABS: Bacteria,Urine 1+ /HPF (Negative); Bilirubin,Urine NEG (Negative); Blood,Urine NEG (Negative); Color,Urine Yellow (Yellow); Mucus,Urine FEW /HPF; Protein,Urine <15 mg/dL mg/dL (Negative)
--- NOTE | 2020-10-16 12:49 | Consultation ---
History of Present Illness - Reason for Consult Consult date: 10/16/20 Reason for consult: agitation - History of Present Psychiatric Illness Oleksandr Mejia is a 30y/o male patient who was seen today. He was brought in by police for agitation and making threats. During my assessment of the patient he is calm, cooperative and polite. He is playful. He says he said something out of the way to his ACT team doctor. The patient says he was upset because he thought they were talking about him. He denies SI/HI or any feeling or fear of endangerment for himself or any one else. The patient states "I do not want to hurt myself or anybody and I do not fear I will hurt myself or anybody." The patient denies hallucinations. But he states "I talk to myself sometimes, that's because I only believe myself." He then laughs. The patient says he has a history of schizophrenia. He says he takes Invega Trinza. Thh patient says he was just released from [facility] about a week ago. PAST PSYCHIATRIC HISTORY: Diagnoses: Schizophrenia Suicide attempts or Self-harm behavior: Denies Prior psychiatric hospitalizations: Yes Substance Abuse history: denies Previous psychiatric medications tried: Denies Outpatient treatment: Denies PAST MEDICAL HISTORY: None reported Family Psychiatric History: None reported or documented SOCIAL HISTORY Marital Status: Single Living Arrangements: Employment Status: Disabled Access to guns/weapons: Denies Education: high school History of Abuse: Denies Legal History: Denies REVIEW OF SYSTEMS Constitutional: Negative for weight loss ENT: Negative for stridor Respiratory: Negative for cough or hemoptysis All other systems reviewed and are negative MENTAL STATUS EXAMINATION General Appearance and Behavior: Age appropriate, good hygiene, not wearing appropriate clothes, good eye contact, cooperative polite with questioning. Polite, playful Cooperation: Participating, engaging Psychomotor Behavior: Psychomotor normal Mood: "good" Affect and affective range: Euthymic Thought Process: Goal directed Speech: Normal tone and pace Intellectual Functioning: Average Thought Content Suicidal Ideation: Denies Homicidal Ideation: Denies Hallucinations: Denies Delusions: None elicited Impulse Control: Impaired Insight and Judgment: Limited insight and judgment Memory: Normal Attention: Undivided attention impaired Orientation: A/o x 3 Assessment and Plan (1) Schizophrenia Current Visit: Yes Status: Acute Treatment Plan d/c 1013 patient was brought in on Continue previously prescribed meds by outpatient psychiatrist Continue seeing ACT team Sitter: Per medical Medical: Per medical Disposition: Do not recommend inpatient psychiatric treatment. The patient understands that if suicidal or homicidal thoughts are to occur he is to seek immediate assistance including but not limited to 911/ER or crisis hotline The patient is to follow up and receive his invega trinza with outpatient psych Will sign off. Thank you for this consult Case staffed with Dr. Forrester. Medications and Allergies Allergies Allergy/AdvReac Type Severity Reaction Status Date / Time No Known Allergies Allergy Verified 11/07/16 08:13 Home Medications Medication Instructions Recorded Confirmed Last Taken Type Ziprasidone HCl [Geodon] 80 mg PO DAILY 11/06/16 02/06/17 Unknown History Active Meds: Active Medications Acetaminophen (Acetaminophen 325 Mg Tab) 650 mg PO Q4HR PRN PRN Reason: Pain MILD(1-3)/Fever >100.5/DAVIS Al Hydrox/Mg Hydrox/Simethicone (Alum-Mag Hydroxide-Simethicone [phone]/5ml Oral Liqd 30 Ml) 30 ml PO Q4HR PRN PRN Reason: Indigestion Magnesium Hydroxide (Magnesium Hydroxide (Mom) Oral Liqd Udc) 30 ml PO Q12HR PRN PRN Reason: Constipation Ziprasidone (Ziprasidone Mesylate 20 Mg Vial) 10 mg IM Q12H PRN PRN Reason: Agitation Mental Status Exam - Vital signs Last Vital Signs Temp 97.5 F L 10/16/20 07:34 Pulse 91 H 10/16/20 07:34 Resp 18 10/16/20 07:34 BP 130/73 10/16/20 07:34 Pulse Ox 97 10/16/20 07:34 Results Result Diagrams: 10/15/20 15:33 10/15/20 15:33 Abnormal lab results 10/15/20 10/15/20 10/15/20 Range/Units 15:33 15:33 15:33 Seg Neutrophils % (40.0-70.0) % Glucose 112 H (75-100) mg/dL Salicylates < 0.3 L (2.8-20.0) mg/dL Acetaminophen 5.0 L (10.0-30.0) ug/mL 10/15/20 Range/Units 15:33 Seg Neutrophils % 73.1 H (40.0-70.0) % Glucose (75-100) mg/dL Salicylates (2.8-20.0) mg/dL Acetaminophen (10.0-30.0) ug/mL All other labs normal.
[2020-10-16 12:54] LABS: Amphetamine Screen,Urine Negative; Benzodiazepines Screen,Urine Negative; Cocaine Screen,Urine Negative; Methadone Screen,Urine Negative; Opiate Screen,Urine Negative
[2020-10-16 13:07] LABS: Cannabinoid Screen,Urine PRESUMPTIVE POSITIVE
== END 2020-10-16 13:15 | disposition home or self-care (01) ==
LOC: ED 13:37
DX: F23 Brief psychotic disorder (principal); Z20.822 Contact with and (suspected) exposure to COVID-19; F25.9 Schizoaffective disorder, unspecified; R45.4 Irritability and anger; Z79.899 Other long term (current) drug therapy
CPT/HCPCS: 36415; 80048; 80307; 81001; 85025; 96372; 99284; J2060; J3486; U0003; 80320; G0480